=== PATIENT | male | born 1990 | race American Indian/Alaskan Native ===

== ENCOUNTER 2017-05-23 20:39 | Emergency (ER) | payer SELFPAY ==
[2017-05-23 21:01] VITALS: TEMP 98.8
[2017-05-23] MEDS ORDERED: Lidocaine 2% Jelly (Uro-Jet) TOP ONE (21:53)
--- NOTE | 2017-05-23 21:57 | ED PDOC ---
Arrival/HPI - General Chief Complaint: GI Problem Time Seen by Provider: 05/23/17 21:53 Historian: Patient - History of Present Illness Narrative History of Present Illness (Text): 05/23/17 21:54 27 y/o male, no pmh, nkda, c/o rectal pain with an episode of bright red blood streaking stool on the toilet tonight. Pt. stated that he has been constantly for the past 2-3 days, been straining alot and been having pain, noted to have bright red blood on the tissue tonight, bleeding resolved, no fever or chills, no headache or abdominal pain, no nausea or vomiting, no change in appetize, no other medical or psychological complaints. Past Medical History - Provider Review Nursing Documentation Reviewed: Yes - Psychiatric Hx Substance Use: No Family/Social History - Physician Review Nursing Documentation Reviewed: Yes Family/Social History: Unknown Family HX Smoking Status: Never Smoked Hx Alcohol Use: Yes Frequency of alcohol use: Socially Hx Substance Use: No Allergies/Home Meds Allergies/Adverse Reactions: Allergies No Known Allergies Allergy (Verified 05/23/17 21:00) Review of Systems - Review of Systems Constitutional: absent: Fatigue, Fevers Eyes: absent: Vision Changes ENT: absent: Hearing Changes Respiratory: absent: SOB, Cough Cardiovascular: absent: Chest Pain Gastrointestinal: Constipation. absent: Abdominal Pain Musculoskeletal: absent: Arthralgias, Back Pain, Myalgias Psychiatric: absent: Anxiety, Depression, Suicidal Ideation Physical Exam Vital Signs Reviewed: Yes Vital Signs Temp Pulse Resp BP Pulse Ox 05/23/17 21:00 98.8 F 81 16 124/71 98 Temperature: Afebrile Blood Pressure: Normal Pulse: Regular Respiratory Rate: Normal Appearance: Positive for: Well-Appearing, Non-Toxic, Comfortable Pain Distress: Moderate Mental Status: Positive for: Alert and Oriented X 3 - Systems Exam Head: Present: Atraumatic, Normocephalic Pupils: Present: PERRL Extroacular Muscles: Present: EOMI Conjunctiva: Present: Normal Mouth: Present: Moist Mucous Membranes Neck: Present: Normal Range of Motion Respiratory/Chest: Present: Clear to Auscultation, Good Air Exchange. No: Respiratory Distress, Accessory Muscle Use Cardiovascular: Present: Regular Rate and Rhythm, Normal S1, S2. No: Murmurs Abdomen: Present: Normal Bowel Sounds. 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 ). No: Occult Blood, Rectal Tenderness, Gross Blood, Melena, Hemorrhoids, Nodule/ Mass/Lesions Back: Present: Normal Inspection Upper Extremity: Present: Normal Inspection. No: Cyanosis, Edema Lower Extremity: Present: Normal Inspection. No: Edema Neurological: Present: GCS=15, Speech Normal, Motor Func Grossly Intact, Gait Normal, Memory Normal Skin: Present: Warm, Dry, Normal Color. No: Rashes Psychiatric: Present: Alert, Oriented x 3, Normal Insight, Normal Concentration Medical Decision Making ED Course and Treatment: 05/23/17 21:56 -guaiac is negative -topical lidocaine ordered for supportive treatment. 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 Disposition/Present on Arrival - Present on Arrival Any Indicators Present on Arrival: No History of DVT/PE: No History of Uncontrolled Diabetes: No Urinary Catheter: No History of Decub. 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 Prescriptions: Hydrocortisone 2.5% (Rectal) [Anusol-HC] 1 applic AR BID #30 g Ibuprofen [Motrin Tab] 600 mg PO QID PRN #24 tab PRN Reason: Other Polyethylene Glycol 3350 [Miralax] 17 gm PO DAILY PRN #5 packet PRN Reason: Other Referrals: Elijah Smyth DO [Staff Provider] - Follow up with primary Forms: WORK NOTE
[2017-05-23 22:38] VITALS: BP 130/80; PULSE 70; RESP 18; O2SAT 100
== END 2017-05-23 22:38 | disposition home or self-care (01) ==
LOC: ED 20:39
DX: K59.00 Constipation, unspecified (principal); K62.89 Other specified diseases of anus and rectum